=== PATIENT | male | born 1985 | race Caucasian/White ===

== ENCOUNTER 2019-10-04 00:50 | Emergency (ER) | payer SELFPAY ==
--- NOTE | 2019-10-04 01:20 | EDM.PDOC ---
ED HPI GENERAL MEDICAL PROBLEM - General Chief Complaint: ENT Problem Stated Complaint: TOOTHACHE Time Seen by Provider: 10/04/19 01:11 Source of Information: Reports: Patient History Limitations: Reports: No Limitations - History of Present Illness INITIAL COMMENTS - FREE TEXT/NARRATIVE: 34M presents for L lower molar pain x3 days worsening. Notes h/o dental infections in past. Hasn't seen dentist. Denies fevers or difficulty breathing. Denies trouble swallowing. left toother Pain Score (Numeric/FACES): 7 - Related Data Allergies Allergy/AdvReac Type Severity Reaction Status Date / Time No Known Allergies Allergy Verified 10/04/19 01:24 Home Meds: Home Meds Acetaminophen/oxyCODONE [Percocet 325-5 MG] 1 each PO Q4H 3 Days #18 tab 10/04/19 [Rx] Amoxicillin/Potassium Clav [Augmentin 875-125 Tablet] 1 each PO BID 7 Days #14 tablet 10/04/19 [Rx] ED ROS ENT - Review of Systems Review Of Systems: Comprehensive ROS is negative, except as noted in HPI. ED EXAM, ENT - Physical Exam Exam: See Below Exam Limited By: No Limitations General Appearance: Alert, WD/WN, No Apparent Distress Mouth/Throat: Other (poor dentition, erythema of L lower gums) Head: Atraumatic Neck: Normal Inspection Respiratory/Chest: No Respiratory Distress Cardiovascular: Normal Peripheral Pulses Neurological: Alert Psychiatric: Normal Affect, Normal Mood Skin: Warm, Dry Course - Vital Signs Last Recorded V/S: Last Vital Signs Temp 97.0 F 10/04/19 01:20 Pulse 65 10/04/19 02:19 Resp 16 10/04/19 02:19 BP 128/80 10/04/19 02:19 Pulse Ox 98 10/04/19 02:19 - Orders/Labs/Meds Meds: Medications Discontinued Medications Generic Name Dose Route Start Last Admin Trade Name Freq PRN Reason Stop Dose Admin Amoxicillin/Clavulanate Potassium 1 tab 10/04/19 01:47 10/04/19 02:07 Augmentin 875 Mg/125 Mg PO 10/04/19 01:48 1 tab ONETIME ONE Administration Oxycodone/Acetaminophen 1 tab 10/04/19 01:47 10/04/19 02:07 Percocet 325-5 Mg PO 10/04/19 01:48 1 tab ONETIME ONE Administration - Re-Assessments/Exams Free Text/Narrative Re-Assessment/Exam: 10/04/19 02:52 Will give percocet and augmentin; will d/c with same. Needs dental f/u for definitive treatment. Patient understands and agrees with plan Departure - Departure Time of Disposition: 02:00 Disposition: DC/Tfer W/I Hosp To Swing 61 Condition: Good Clinical Impression: Pain, dental - Discharge Information Prescriptions: Amoxicillin/Potassium Clav [Augmentin 875-125 Tablet] 1 each PO BID 7 Days #14 tablet Acetaminophen/oxyCODONE [Percocet 325-5 MG] 1 each PO Q4H 3 Days #18 tab Instructions: Dental Abscess, [id number] Referrals: PCP,Not In Area [Primary Care Provider] - Forms: ED Department Discharge Additional Instructions: The following information is given to patients seen in the emergency department who are being discharged to home. This information is to outline your options for follow-up care. We provide all patients seen in our emergency department with a follow-up referral. The need for follow-up, as well as the timing and circumstances, are variable depending upon the specifics of your emergency department visit. If you don't have a primary care physician on staff, we will provide you with a referral. We always advise you to contact your personal physician following an emergency department visit to inform them of the circumstance of the visit and for follow-up with them and/or the need for any referrals to a consulting specialist. The emergency department will also refer you to a specialist when appropriate. This referral assures that you have the opportunity for follow-up care with a specialist. All of these measure are taken in an effort to provide you with optimal care, which includes your follow-up. Under all circumstances we always encourage you to contact your private physician who remains a resource for coordinating your care. When calling for follow-up care, please make the office aware that this follow-up is from your recent emergency room visit. If for any reason you are refused follow-up, please contact the [facility] at and asked to speak to the emergency department charge nurse. [facility] [address] [place] [id number] [facility] [address] [place] [id number] Care Plan Goals: Medications as prescribed. Follow up with a dentist. Sepsis Event Note (ED) - Focused Exam Vital Signs: Vital Signs Temp Pulse Resp BP Pulse Ox 10/04/19 02:19 65 16 128/80 98 10/04/19 01:20 97.0 F 71 16 128/80 98
[2019-10-04] MEDS ORDERED: Amoxicillin/Clavulanate K 875-125 MG Tab PO ONE (01:47)
[2019-10-04] MEDS ORDERED: Acetaminophen/oxyCODONE 325-5 MG Tab PO ONE (01:47)
== END 2019-10-04 02:30 | disposition swing bed (61) ==
LOC: MW.ED 00:50
DX: K08.89 Other specified disorders of teeth and supporting structures (principal)
CPT/HCPCS: 99283; A9270; 99282